=== PATIENT | female | born 1955 | race African-American/Black ===

== ENCOUNTER 2018-02-08 08:09 | Day surgery (SDC) | payer OTHER ==
[2018-02-08] MEDS ORDERED: KETOROLAC 60 MG/2 ML VIAL IM ONE (10:52)
[2018-02-08] MEDS ORDERED: LIDOCAINE 2% 100 MG/5 ML UJET TP ONE (10:53)
== END 2018-02-08 12:05 | disposition home or self-care (01) ==
LOC: MDS 08:09 → MMU 08:10 → MDS 12:05
PROVIDERS: ATTEND Internal Medicine Gastroenterology
DX: Z12.11 Encounter for screening for malignant neoplasm of colon (principal); K21.9 Gastro-esophageal reflux disease without esophagitis; J45.909 Unspecified asthma, uncomplicated; Z88.8 Allergy status to other drugs, medicaments and biological substances; Z91.040 Latex allergy status; Z79.899 Other long term (current) drug therapy; Z98.890 Other specified postprocedural states; Z87.01 Personal history of pneumonia (recurrent)
CPT/HCPCS: 45378; J1885